=== PATIENT | female | born 1955 | race Caucasian/White ===

== ENCOUNTER 2016-08-10 12:00 | Emergency (ER) | payer SELFPAY ==
[~2016-08-10] VITALS: Ht 154.9 cm; Wt 121.8 kg
[2016-08-10 15:16] LABS: CHLORIDE 102 mEq/L (99-109); POTASSIUM 5.1 mEq/L (3.7-5.4); SODIUM 138 mEq/L (136-147)
[2016-08-10 15:18] LABS: GLUCOSE 109 mg/dL (70-99)
[2016-08-10 15:19] LABS: ANION GAP 12 MEQ/L (2-14); BASOPHIL COUNT 0.1 K/uL (0-0.1); EOSINOPHIL (%) 2.6 % (0-5); EOSINOPHIL COUNT 0.3 K/uL (0-0.3); HEMATOCRIT 34.8 % (36.0-46.0); IMMATURE GRANULOCYTE (%) 1.6 % (0.0-0.7); IMMATURE GRANULOCYTE COUNT 0.2 K/uL; INSTRUMENT ABS NEUTROPHIL CT 7.8 K/uL; LYMPHOCYTE COUNT 1.8 K/uL (1.0-2.8); MCH 29.4 PG (29.0-34.0); MCHC 32.5 G/DL (30.0-36.0); MCV 90.4 FL (83-99); MEAN PLAT.VOLUME 9.5 uM^3 (9.5-12.4); MONOCYTE (%) 8.3 % (3-12); MONOCYTE COUNT 0.9 K/uL (0-0.8); NEUTROPHIL (%) 70.8 % (45-76); NEUTROPHIL COUNT 7.8 K/uL (1.8-6.4); PLATELET COUNT 451 K/uL (156-360); RBC DIS.WIDTH-CV 14.1 % (11.8-14.6); RBC DIS.WIDTH-SD 46.5 % (39-53); RED BLOOD COUNT 3.85 M/uL (3.80-5.20)
[2016-08-10 15:22] LABS: GFR ESTIMATE (CALCULATED) 49 mL/min/
[2016-08-10 15:23] LABS: UREA NITROGEN (BUN) 28 mg/dL (9-23)
[2016-08-10] MEDS ORDERED: LISINOPRIL2.5 MG PO (16:09)
[2016-08-10] MEDS ORDERED: METOPROLOL SUCC25 MG PO (16:11)
[2016-08-10] MEDS ORDERED: OMEGA 3-6-9 11200 MG PO (16:13)
[2016-08-10] MEDS ORDERED: ISOSORBIDE MONO30 MG PO (16:13)
[2016-08-10] MEDS ORDERED: LO-DOSE ASPIRIN81 M2 PO (16:14)
[2016-08-10] MEDS ORDERED: RED YEAST RICE600 MG PO (16:14)
[2016-08-10] MEDS ORDERED: NIACIN500 M4 PO (16:15)
[2016-08-10] MEDS ORDERED: FLONASE ALLERG9.9 ML BOTH NARES (16:16)
[2016-08-10] MEDS ORDERED: PROBIOTIC1 EAC7 PO (16:16)
[2016-08-10 17:20] VITALS: BP 137/63
[2016-08-11] MEDS ORDERED: VITAMIN D31000 UNIT PO (10:13)
== END 2016-08-10 17:39 | disposition home or self-care (01) ==
LOC: EME 12:00
PROVIDERS: Physician Assistant
DX: L03.116 Cellulitis of left lower limb (principal); I10 Essential (primary) hypertension; E78.5 Hyperlipidemia, unspecified; Z87.891 Personal history of nicotine dependence
CPT/HCPCS: 80048; 85025; 99281; 99284; J7050